=== PATIENT | male | born 1985 | race Caucasian/White ===

== ENCOUNTER 2018-07-02 18:48 | Emergency (ER) | payer BC ==
[2018-07-02 19:01] VITALS: BP 137/87
[2018-07-02] MEDS ORDERED: Acetaminophen/oxyCODONE 325-5 MG Tab PO ONE (19:12)
--- NOTE | 2018-07-02 19:38 | EDM.PDOC ---
ED HPI GENERAL MEDICAL PROBLEM - General Chief Complaint: Upper Extremity Injury/Pain Stated Complaint: INJURY TO LEFT RIB AREA/RIGHT HAND THUMB Time Seen by Provider: 07/02/18 18:56 Source of Information: Reports: Patient History Limitations: Reports: No Limitations - History of Present Illness Onset: Today, Sudden Onset Date: 07/02/18 Onset Time: 18:00 Duration: Getting Worse, Intermittent Location: Reports: Chest, Upper Extremity, Right Quality: Reports: Ache Severity: Moderate Improves with: Reports: None Worsens with: Reports: Breathing, Movement Associated Symptoms: Denies: Confusion, Fever/Chills, Headaches, Nausea/Vomiting , Shortness of Breath, Weakness - Related Data Allergies Allergy/AdvReac Type Severity Reaction Status Date / Time No Known Allergies Allergy Verified 07/02/18 19:01 Home Meds: Home Meds Ketorolac [Toradol] 10 mg PO TID PRN 4 Days #12 tab 07/02/18 [Rx] Past Medical History - Past Surgical History GI Surgical History: Reports: Appendectomy Other GI Surgeries/Procedures: appendectomy Other Musculoskeletal Surgeries/Procedures:: Left wrist and left hand surgeries. Social & Family History - Tobacco Use Smoking Status *Q: Never Smoker - Caffeine Use Caffeine Use: Reports: Coffee - Recreational Drug Use Recreational Drug Use: No Review of Systems - Review of Systems Review Of Systems: See Below Constitutional: Reports: No Symptoms Eyes: Reports: No Symptoms Ears: Reports: No Symptoms Nose: Reports: No Symptoms Mouth/Throat: Reports: No Symptoms Respiratory: Reports: Other (left chest wall pain). Denies: Shortness of Breath Cardiovascular: Reports: Chest Pain (left chest wall tenderness) GI/Abdominal: Denies: Abdominal Pain Genitourinary: Reports: No Symptoms Musculoskeletal: Reports: Other (right thumb pain) Skin: Reports: No Symptoms Neurological: Denies: Confusion, Dizziness, Headache, Gait Disturbance Psychiatric: Reports: No Symptoms ED EXAM, GENERAL - Physical Exam Exam: See Below Exam Limited By: No Limitations General Appearance: Alert, WD/WN, No Apparent Distress Eye Exam: Bilateral Eye: EOMI, PERRL Ears: Normal External Exam, Normal Canal, Hearing Grossly Normal, Normal TMs Nose: Normal Inspection, Normal Mucosa, No Blood Throat/Mouth: Normal Inspection, Normal Lips, Normal Teeth, Normal Gums, Normal Oropharynx, Normal Voice, No Airway Compromise, Perioral Cyanosis Head: Atraumatic, Normocephalic Neck: Normal Inspection, Supple, Non-Tender, Full Range of Motion Respiratory/Chest: No Respiratory Distress, Lungs Clear, Normal Breath Sounds, No Accessory Muscle Use, Other (left chest wall tenderness with deep palpation) Cardiovascular: Normal Peripheral Pulses, Regular Rate, Rhythm, No Edema, No Gallop, No JVD, No Murmur, No Rub GI/Abdominal: Normal Bowel Sounds, Soft, Non-Tender, No Organomegaly, No Distention, No Abnormal Bruit, No Mass, Pelvis Stable Back Exam: Normal Inspection, Full Range of Motion Extremities: Normal Inspection, No Pedal Edema, Normal Capillary Refill, Limited Range of Motion, Other (right thumb and stuff box tenderness, decreased ROM due to pain, neurovascularly intact.) Neurological: Alert, Oriented, CN II-XII Intact, Normal Cognition, Normal Gait Psychiatric: Normal Affect, Normal Mood Skin Exam: Warm, Dry, Intact, Normal Color, No Rash Lymphatic: No Adenopathy Course - Vital Signs Last Recorded V/S: Last Vital Signs Temp 98.3 F 07/02/18 18:57 Pulse 82 07/02/18 18:57 Resp 16 07/02/18 18:57 BP 137/87 07/02/18 18:57 Pulse Ox 100 07/02/18 18:57 - Orders/Labs/Meds Orders: Active Orders 24 hr Category Date Time Status Fingers Thumb Rt F5 [CR] Stat Exams 07/02/18 19:03 Taken Meds: Medications Discontinued Medications Generic Name Dose Route Start Last Admin Trade Name Freq PRN Reason Stop Dose Admin Ketorolac Tromethamine 60 mg 07/02/18 20:10 07/02/18 20:18 Toradol IM 07/02/18 20:11 60 mg ONETIME ONE Administration Oxycodone/Acetaminophen 2 tab 07/02/18 19:12 07/02/18 19:18 Percocet 325-5 Mg PO 07/02/18 19:13 2 tab ONETIME ONE Administration - Re-Assessments/Exams Free Text/Narrative Re-Assessment/Exam: 07/02/18 20:20 Preliminary right thumb x-ray reveals no fracture or dislocation. Because the patient is having tenderness in the snuffbox . I will discharge home with a thumb spica. CT chest revealed no incidental findings nothing acute is seen on the non-CT chest study. Patient did receive Toradol and Percocet for pain and had relief. I feel his pain is musculoskeletal in nature. I will discharge home with Toradol for pain. Instructed patient to take any NSAIDs while taking Toradol. Instructed patient to follow up with his PCP. I did prefer the patient to Dr. Leos today for evaluation of right thumb pain. Patient to return to the emergency room for any new or acutely worsening symptoms. Patient verbalized understanding and is comfortable plan for discharge. Departure - Departure Time of Disposition: 20:25 Disposition: Home, Self-Care 01 Condition: Good Clinical Impression: Sprain of right thumb Qualifiers: Encounter type: initial encounter Sprain of finger site: unspecified site Qualified Code(s): S63.601A - Unspecified sprain of right thumb, initial encounter Chest wall muscle strain Qualifiers: Encounter type: initial encounter Qualified Code(s): S29.011A - Strain of muscle and tendon of front wall of thorax, initial encounter - Discharge Information Prescriptions: Ketorolac [Toradol] 10 mg PO TID PRN 4 Days #12 tab PRN Reason: Chest wall pain Instructions: Finger Sprain, Adult, [id number], Cryotherapy, Muscle Strain, [id number] Referrals: PCP,None [Primary Care Provider] - Skinny Leos MD [Physician] - Forms: ED Department Discharge Additional Instructions: He had been diagnosed with a right thumb sprain. Your x-ray did not show any fracture or dislocation. If she continued to have pain I recommended follow-up in orthopedic. I did give you a referral for . ER chest CT revealed no fracture or dislocation of ribs. You did receive Toradol and Percocet for pain. I will discharge home with Toradol for pain. I recommend you DO NOT TAKE ibuprofen, Motrin, Aleve or Naprosyn or while you are taking Toradol. Follow- up with your PCP. Return to the emergency room for any new or acutely worsening symptoms. - My Orders Last 24 Hours: My Active Orders 07/02/18 19:03 Fingers Thumb Rt F5 [CR] Stat - Assessment/Plan Last 24 Hours: My Active Orders 07/02/18 19:03 Fingers Thumb Rt F5 [CR] Stat
--- NOTE | 2018-07-02 19:57 | CT ---
CT chest Technique: Multiple axial sections were obtained from above the lung apices inferiorly through the lung bases. Intravenous contrast not utilized. Comparison: Prior chest x-ray of 07/08/11. Findings: Small portion of the visualized upper abdominal structures appear within normal limits. No pericardial thickening is seen. Mediastinal and hilar regions are within normal limits. No axillary adenopathy is seen. Lungs are clear. No pulmonary contusion is seen. Bone window settings were reviewed which shows minimal degenerative change scattered within the spine. No acute compression deformities are seen. Reconstructed sagittal images of the sternum appear intact. No discrete rib fracture is appreciated. Impression: 1. Incidental findings. Nothing acute is seen on noncontrast CT study of the chest. Diagnostic code #2
[2018-07-02] MEDS ORDERED: Ketorolac 30 MG/ML SDV IM ONE (20:10)
--- NOTE | 2018-07-03 11:18 | CR ---
Right thumb: Three views of the right thumb were obtained. Comparison: No previous thumb study. Slight deformity is seen within the base of the proximal phalanx of the thumb compatible with old injury. No acute fracture, dislocation or other bony abnormality is seen. Impression: 1. Old injury deformity. 2. Nothing acute is seen on right thumb exam. Diagnostic code #2
== END 2018-07-02 20:35 | disposition home or self-care (01) ==
LOC: JD.ED 18:48
DX: S63.601A Unspecified sprain of right thumb, initial encounter (principal); S29.011A Strain of muscle and tendon of front wall of thorax, initial encounter; X58.XXXA Exposure to other specified factors, initial encounter
CPT/HCPCS: 71250; 73140; 96372; 99284; A9270; J1885; 99283

== ENCOUNTER 2020-12-23 23:05 | Emergency (ER) | payer BC ==
[2020-12-23 23:28] VITALS: BP 153/83; PULSE 51
[2020-12-24] MEDS ORDERED: Alum Hydrox/Mag Hydrox/Simeth 30 ML, Lidocaine 2% 15 ML PO ONE ×2 (00:12)
--- NOTE | 2020-12-24 00:12 | EDM.PDOC ---
ED HPI GENERAL MEDICAL PROBLEM - General Chief Complaint: Chest Pain Stated Complaint: CHEST PAIN Time Seen by Provider: 12/24/20 00:03 - History of Present Illness INITIAL COMMENTS - FREE TEXT/NARRATIVE: 35-year-old male presents the emergency room with chest pain. This is been going on most the day. It is a little worse with deep breathing. He does not rank it is a very severe pain. Yesterday the patient had a vasectomy done other than this he has been up and around and walking some he has no dyspnea with exertion. He has minimal cough nonproductive. No fevers no chills no other signs of systemic illness. Chest Pain Score (Numeric/FACES): 7 - Related Data Allergies Allergy/AdvReac Type Severity Reaction Status Date / Time No Known Allergies Allergy Verified 07/02/18 19:01 Home Meds: Home Meds Ketorolac [Toradol] 10 mg PO TID PRN 4 Days #12 tab 07/02/18 [Rx] Past Medical History - Infectious Disease History Infectious Disease History: Reports: Chicken Pox, Novel Coronavirus - Past Surgical History HEENT Surgical History: Reports: Tonsillectomy GI Surgical History: Reports: Appendectomy Other GI Surgeries/Procedures: appendectomy Male Surgical History: Reports: Vasectomy Other Musculoskeletal Surgeries/Procedures:: Left wrist and left hand surgeries. Social & Family History - Family History Cardiac: Reports: [place] - Tobacco Use Tobacco Use Status *Q: Current Every Day Tobacco User Years of Tobacco use: 20 Packs/Tins Daily: 0.2 - Caffeine Use Caffeine Use: Reports: Coffee - Recreational Drug Use Recreational Drug Use: No ED ROS GENERAL - Review of Systems Review Of Systems: See Below Constitutional: Reports: No Symptoms HEENT: Reports: No Symptoms Respiratory: Reports: Pleuritic Chest Pain. Denies: Shortness of Breath, Wheezing, Cough Cardiovascular: Reports: No Symptoms GI/Abdominal: Reports: No Symptoms ED EXAM, GENERAL - Physical Exam Exam: See Below Exam Limited By: No Limitations General Appearance: Alert, No Apparent Distress Head: Atraumatic, Normocephalic Neck: Normal Inspection, Supple, Non-Tender, Full Range of Motion. No: Lymphadenopathy (L), Lymphadenopathy (R) Respiratory/Chest: No Respiratory Distress, Lungs Clear, Normal Breath Sounds, Other (12 essentially nontender with palpation) Cardiovascular: Normal Peripheral Pulses, Regular Rate, Rhythm, No Edema, No Murmur GI/Abdominal: Normal Bowel Sounds, Soft, Non-Tender Extremities: Other (No palpable lower leg or thigh tenderness.). No: Pedal Edema, Dick's Sign, Leg Pain #1 Interpretation EKG Date: 12/23/20 Rhythm: NSR Rate (Beats/Min): 53 [place]: Normal P-Wave: Present QRS: Normal ST-T: Normal QT: Normal Comparison: NA - No Prior EKG EKG Interpretation Comments: Normal EKG Course - Vital Signs Last Recorded V/S: Last Vital Signs Temp 36.2 C 12/23/20 23:23 Pulse 51 L 12/23/20 23:23 Resp 11 L 12/23/20 23:23 BP 153/83 H 12/23/20 23:23 Pulse Ox 100 12/23/20 23:23 - Orders/Labs/Meds Orders: Active Orders 24 hr Category Date Time Status Chest 1V Frontal [CR] Stat Exams 12/23/20 23:39 Taken Labs: Laboratory Tests 12/23/20 12/23/20 Range/Units 23:10 23:10 WBC 8.46 (4.23-9.07) K/mm3 RBC 5.22 (4.63-6.08) M/mm3 Hgb 15.0 (13.7-17.5) gm/dl Hct 43.8 (40.1-51.0) % MCV 83.9 (79.0-92.2) fl MCH 28.7 (25.7-32.2) pg MCHC 34.2 (32.2-35.5) g/dl RDW Std Deviation 36.8 (35.1-43.9) fL Plt Count 264 (163-337) K/mm3 MPV 10.1 (9.4-12.3) fl Neut % (Auto) 46.1 (34.0-67.9) % Lymph % (Auto) 38.9 (21.8-53.1) % Webb % (Auto) 10.8 (5.3-12.2) % Eos % (Auto) 3.5 (0.8-7.0) Baso % (Auto) 0.5 (0.1-1.2) % Neut # (Auto) 3.90 (1.78-5.38) K/mm3 Lymph # (Auto) 3.29 (1.32-3.57) K/mm3 Webb # (Auto) 0.91 H (0.30-0.82) K/mm3 Eos # (Auto) 0.30 (0.04-0.54) K/mm3 Baso # (Auto) 0.04 (0.01-0.08) K/mm3 Sodium 140 (136-145) mEq/L Potassium 3.2 L (3.5-5.1) mEq/L Chloride 104 (98-107) mEq/L Carbon Dioxide 29 (21-32) mEq/L Anion Gap 10.2 (5-15) BUN 21 H (7-18) mg/dL Creatinine 1.2 (0.7-1.3) mg/dL Est Cr Clr Drug Dosing 98.03 mL/min Estimated GFR (MDRD) > 60 (>60) mL/min BUN/Creatinine Ratio 17.5 (14-18) Glucose 91 (70-99) mg/dL Calcium 9.2 (8.5-10.1) mg/dL Total Bilirubin 1.2 H (0.2-1.0) mg/dL AST 17 (15-37) U/L ALT 30 (16-63) U/L Alkaline Phosphatase 81 (46-116) U/L Troponin I < 0.017 (0.00-0.056) ng/mL Total Protein 7.3 (6.4-8.2) g/dl Albumin 4.0 (3.4-5.0) g/dl Globulin 3.3 gm/dL Albumin/Globulin Ratio 1.2 (1-2) Meds: Medications Discontinued Medications Generic Name Dose Route Start Last Admin Trade Name Freq PRN Reason Stop Dose Admin Al Hydroxide/Mg Hydroxide 30 0 ml 12/24/20 00:12 12/24/20 00:36 ml/ Lidocaine HCl 15 ml PO 12/24/20 00:13 45 ml ONETIME ONE Administration Potassium Chloride 40 meq 12/24/20 02:41 12/24/20 02:47 Potassium Chloride 20 Meq Tab.Er PO 12/24/20 02:42 40 meq ONETIME ONE Administration - Re-Assessments/Exams Free Text/Narrative Re-Assessment/Exam: 12/24/20 02:43 Work-up is unremarkable his potassium is a little low at 3.2 will give him 40 mEq of oral. I did not check a D-dimer because undoubtedly would come back positive with him having a vasectomy yesterday. He has no calf tenderness. He has no tachycardia or tachypnea. I discussed with him the findings and the limitations of our work-up. And he understands not doing CT imaging at this point and he agrees to follow-up here in the emergency room or with his regular healthcare provider in a couple of days if this does not get better. He will use Tylenol as needed for discomfort after he thinks it is a 48 hours of not using Motrin he can switch over to Motrin at that time. 12/24/20 02:47 Departure - Departure Time of Disposition: 02:44 Disposition: Home, Self-Care 01 Clinical Impression: Chest wall pain - Discharge Information Instructions: Chest Wall Pain, [id number] Referrals: René Aguilar MD [Primary Care Provider] - Forms: ED Department Discharge Additional Instructions: Return to the emergency room with any questions problems or worsening symptoms. Return immediately if you develop shortness of breath or you start coughing up some blood. Follow-up in the clinic in 2 days if not better. Tylenol as needed for discomfort. After it is okay for you to start ibuprofen or Aleve these often work better than Tylenol for the discomfort. However, clarify your discharge instructions from your vasectomy to find out when it is okay to resume ibuprofen or Aleve. Sepsis Event Note (ED) - Evaluation Sepsis Screening Result: No Definite Risk - Focused Exam Vital Signs: Vital Signs Temp Pulse Resp BP Pulse Ox 12/23/20 23:23 36.2 C 51 L 11 L 153/83 H 100 - My Orders Last 24 Hours: My Active Orders 12/23/20 23:39 Chest 1V Frontal [CR] Stat - Assessment/Plan Last 24 Hours: My Active Orders 12/23/20 23:39 Chest 1V Frontal [CR] Stat
[2020-12-24] MEDS ORDERED: Aluminum Hydroxide/Magnesium Hydroxide/Simethicone Susp 30 ML Cup ONE (00:33)
[2020-12-24] MEDS ORDERED: Lidocaine 2% Viscous Solution 15 ML Cup ONE (00:33)
[2020-12-24] MEDS ORDERED: Potassium Chloride 20 MEQ Tab.ER PO ONE (02:41)
--- NOTE | 2020-12-24 06:08 | CR ---
Chest: Frontal view of the chest was obtained. Comparison: Prior chest x-ray of 07/08/[address] of 07/02/18. Heart size and mediastinum are within normal limits. Lungs are clear with no acute parenchymal change. Bony structures show nothing acute. Impression: 1. Nothing acute is seen on frontal chest x-ray. Diagnostic code #1
== END 2020-12-24 03:00 | disposition home or self-care (01) ==
LOC: JD.ED 23:05
DX: R07.89 Other chest pain (principal); Z72.0 Tobacco use
CPT/HCPCS: 36415; 71045; 80053; 84484; 85025; 93005; 99285; A9270